=== PATIENT | female | born 1940 | race African-American/Black ===

== ENCOUNTER → 2018-03-05 | Outpatient (RCR) | payer MEDICARE, BC | END | disposition home or self-care (01) | LOC: PTY 15:30 | DX: M76.71 Peroneal tendinitis, right leg (principal); M67.00 Short Achilles tendon (acquired), unspecified ankle | CPT/HCPCS: 97110; 97140; 97161; G8978; G8979 ==

== ENCOUNTER 2018-03-09 14:55 | Outpatient (RCR) | payer MEDICARE, BC | END 2018-04-05 | disposition home or self-care (01) | LOC: PTY 14:55 | DX: M76.71 Peroneal tendinitis, right leg (principal); M67.00 Short Achilles tendon (acquired), unspecified ankle ==

== ENCOUNTER 2018-04-06 14:04 | Outpatient (RCR) | payer MEDICARE, BC | END 2018-05-05 | disposition home or self-care (01) | LOC: PTY 14:04 | DX: M76.71 Peroneal tendinitis, right leg (principal); M67.00 Short Achilles tendon (acquired), unspecified ankle | CPT/HCPCS: 97110; 97140; G0283 ==